=== PATIENT | female | born 1960 | race African-American/Black ===

== ENCOUNTER 2017-08-31 11:44 | Inpatient (IN) | payer MEDICAID ==
[~2017-08-31] VITALS: Ht 157.5 cm; Wt 63.5 kg
[2017-08-31 11:48] VITALS: BP 113/80
--- NOTE | 2017-08-31 12:06 | NUR ---
PT AMBULATED TO BED 12
--- NOTE | 2017-08-31 12:50 | NUR ---
Pt presents to ED with lower abdominal pain x1 day. Pt states vaginal bleed since this am at 6am soaking x12 pads. Pt stats normal urination pattern and does not have lower back pain. Hx of miscarriage x1 month ago. A&Ox4, VSS. ER MD aware. Continue to monitor.
--- NOTE | 2017-08-31 13:32 | NUR ---
XRAY AT BEDSIDE
[2017-08-31 13:57] LABS: BASOPHILS # (AUTO) 0.1 K/uL (0.00-0.22); BASOPHILS % (AUTO) 3.5 % (0.0-2.0); EOSINOPHILS % (AUTO) 0.8 % (0.0-4.0); HEMATOCRIT 43.6 % (36-48); HEMOGLOBIN 14.3 g/dL (12.0-16.0); LYMPHOCYTES # (AUTO) 0.7 K/uL (2.5-16.5); LYMPHOCYTES % (AUTO) 19.5 % (20.5-51.1); MEAN CORPUSCULAR HEMOGLOBIN 29 pg (27-31); MEAN CORPUSCULAR HGB CONC 33 g/dL (33-37); MEAN CORPUSCULAR VOLUME 90 fL (80-94); MONOCYTES # (AUTO) 0.4 K/uL (0.8-1.0); MONOCYTES % (AUTO) 11.3 % (1.7-9.3); NEUTROPHILS # (AUTO) 2.2 K/uL (1.8-7.7); NEUTROPHILS % (AUTO) 64.9 % (42.2-75.2); PLATELET COUNT (AUTO) 132 K/uL (140-450); RED BLOOD CELL COUNT(AUTO) 4.86 MIL/uL (4.20-5.40); RED CELL DISTRIBUTION WIDTH 13.2 % (11.6-13.7); WHITE BLOOD COUNT (AUTO) 3.4 K/uL (4.8-10.8)
[2017-08-31 14:10] LABS: ANION GAP 8.1 (8-16); CARBON DIOXIDE 29.9 mmol/L (21-32); CREATININE 0.8 mg/dL (0.6-1.3)
[2017-08-31 14:17] LABS: TOTAL BILIRUBIN 0.7 mg/dL (0.0-1.0)
[2017-08-31 14:24] LABS: D-DIMER > 5000 ng/ml (0-400)
[2017-08-31 14:26] LABS: PROTHROMBIN TIME 11.1 secs (10.8-13.4)
[2017-08-31] MEDS ORDERED: FAMOTIDINE 20 MG/2 ML VIAL IVP ONE (14:40)
[2017-08-31] MEDS ORDERED: DEXAMETHASONE 10 MG/ML VIAL IVP ONE (14:40)
[2017-08-31] MEDS ORDERED: ONDANSETRON 4 MG/2 ML VIAL IVP ONE (14:40)
--- NOTE | 2017-08-31 15:02 | NUR ---
RETURNED FROM RADIOLOGY VIA WHEELCHAIR
--- NOTE | 2017-08-31 15:23 | NUR ---
IMMEDIATELY AFTER PUSHING DILUTED DECADRON IV SLOWLY---PT FELT A BURNING SENSATION OVER PERINEAL AREA LASTING <1 MIN MD NOTIFIED---NO INTERVENTION REQUIRED AT THIS TIME
[2017-08-31] MEDS: NACL 0.9% 1,000 ML IV SCH (15:54)
[2017-08-31] MEDS ORDERED: HYDROcodone/APAP 7.5/325 MG 1 TAB PO PRN (15:55)
[2017-08-31] MEDS ORDERED: ACETAMINOPHEN 325 MG TAB PO PRN (15:55)
[2017-08-31] MEDS ORDERED: ONDANSETRON 4 MG/2 ML VIAL IVP PRN (15:55)
[2017-08-31 16:25] LABS: APPEARANCE,URINE SL CLOUDY (CLEAR); BILIRUBIN,URINE 1+ (NEGATIVE); BLOOD, URINE NEGATIVE (NEGATIVE); COLOR,URINE OTHER (YELLOW); LEUKOCYTE ESTERASE ,URINE NEGATIVE (NEGATIVE); NITRITE, URINE POSITIVE (NEGATIVE); UGLUCOSE NEGATIVE (NEGATIVE)
[2017-08-31 16:32] LABS: BARBITURATE, URINE NEG. ng/ml (NEG <=200); BENZODIAZEPINE, URINE NEG. ng/mL (NEG <=200); CANNABINOID, URINE NEG. ng/mL (NEG <=50); COCAINE, URINE POS. ng/mL (NEG <=300); OPIATE, URINE NEG. ng/mL (NEG <=2000); PHENCYCLIDINE SCREEN,URINE NEG. ng/mL (NEG <=25)
[2017-08-31 16:38] LABS: RBC,URINE 0-5 (RARE) /HPF (0-5); URINE AMORPHOUS URATE 3+ /HPF (None Seen); WBC,URINE 6-15 (FEW) /HPF (0-5)
[2017-08-31 16:43] LABS: CHOL/HDL RATIO 4.3 (1-4.5); FREE T4 (FREE THYROXINE) 1.44 ng/dL (0.76-1.46); PHOSPHORUS 3.3 mg/dL (2.5-4.9); THYROID STIMULATING HORMONE 1.01 uIU/mL (0.34-3.74)
--- NOTE | 2017-08-31 16:50 | NUR ---
Report given and care transfered to [facility] room 112B, transported via gurney with vss, by Kash REYNOLDS and Fabrizio EMT.
[2017-08-31 17:00] VITALS: BP 119/73
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
--- NOTE | 2017-08-31 19:10 | NUR ---
PATIENT IN BED WATCHING TV. PT STABLE NO C/O PAIN OR DISCOMFORT. NO ACUTE DISTRESS. WILL CONT TO MONITOR.
--- NOTE | 2017-08-31 19:20 | NUR ---
REPORT GIVEN AT BEDSIDE TO FOUNDRY WORKER GENERAL NURSE FOR CONTINUITY OF CARE. PATIENT STABLE.
--- NOTE | 2017-08-31 19:21 | NUR ---
PATIENT REPORT RECEIVED FROM MORNING NURSE AT BEDSIDE. PATIENT IS AWAKE, ALERT AND ORIENTED. NO SIGNS AND SYMPTOMS OF DISTRESS NOTED. NO COMPLAINTS OF PAIN AT THIS TIME. PATIENT'S FAMILY IS AT BEDSIDE. IV SITE NOTED ON LEFT FOREARM, IVF FLUID INFUSING WELL. PLAN OF CARE DISCUSSED WITH PATIENT AND FAMILY. PATIENT VERBALIZED UNDERSTANDING. BED IN LOWEST POSITION, SIDE RAILS UP AND CALL LIGHT WITHIN REACH. WILL CONTINUE TO MONITOR.
[2017-08-31 20:00] VITALS: BP 117/70
[2017-08-31] MEDS: DOCUSATE SODIUM 100 MG GELCAP PO SCH (21:00)
--- NOTE | 2017-08-31 22:00 | NUR ---
MEDICATION EDUCATION GIVEN. PATIENT VERBALIZED UNDERSTANDING. DUE MEDS GIVEN ORDERED. PATIENT TOLERATED WELL, WILL CONTINUE TO MONITOR.
[2017-08-31] MEDS: NITROFURANTOIN 100 MG CAP PO SCH (22:15)
[2017-09-01] VITALS: BP 114/69
--- NOTE | 2017-09-01 01:29 | NUR ---
CHECKED ON PATIENT. PATIENT IS ASLEEP. NO SIGNS AND SYMPTOMS OF DISTRESS NOTED. BREATHING EVEN AND UNLABORED. WILL CONTINUE TO MONITOR.
--- NOTE | 2017-09-01 03:45 | NUR ---
CHECKED ON PATIENT. PATIENT IS ASLEEP, NO SIGNS AND SYMPTOMS OF DISTRESS NOTED. BREATHING EVEN AND UNLABORED. WILL CONTINUE TO MONITOR.
[2017-09-01 04:00] VITALS: BP 121/88
--- NOTE | 2017-09-01 06:00 | NUR ---
PATIENT REQUESTED TO TAKE A SHOWER. NOTIFIED RESIDENT, RESIDENT PUT IN ORDER FOR PATIENT TO BE ABLE TO TAKE A SHOWER
--- NOTE | 2017-09-01 06:51 | NUR ---
PATIENT HAS BEEN SCREENED AND CATEGORIZED LOW NUTRITION RISK. PATIENT WILL BE SEEN WITHIN 7 DAYS OF ADMISSION. 09/07/17 WENCESLAO BOLDEN MS, RDN
--- NOTE | 2017-09-01 07:04 | NUR ---
PATIENT REPORT GIVEN TO MORNING NURSE FOR CONTINUITY OF CARE. PATIENT IS IN STABLE CONDITION
--- NOTE | 2017-09-01 07:05 | NUR ---
RECEIVED REPORT AT BEDSIDE FROM KENO WRITER / RUNNER NURSE FOR CONTINUITY OF CARE. PATIENT RESTING IN BED WITH EYES CLOSED. NO ACUTE DISTRESS NOTED. CONT WITH IV TO LAC 20G. WITH NS RUNNING AT 20ML/HR . WILL CONT TO MONITOR PT.
[2017-09-01 07:27] LABS: HEMATOCRIT 39.2 % (36-48); MEAN CORPUSCULAR HEMOGLOBIN 30 pg (27-31); MEAN CORPUSCULAR HGB CONC 33 g/dL (33-37); MEAN CORPUSCULAR VOLUME 89 fL (80-94); PLATELET COUNT (AUTO) 117 K/uL (140-450); RED BLOOD CELL COUNT(AUTO) 4.38 MIL/uL (4.20-5.40); RED CELL DISTRIBUTION WIDTH 12.8 % (11.6-13.7); WHITE BLOOD COUNT (AUTO) 5.5 K/uL (4.8-10.8)
[2017-09-01 07:38] LABS: ANION GAP 9.8 (8-16); CARBON DIOXIDE 26.3 mmol/L (21-32); CREATININE 0.6 mg/dL (0.6-1.3); POTASSIUM 4.1 mmol/L (3.5-5.1)
[2017-09-01 07:42] LABS: MAGNESIUM 1.8 mg/dL (1.8-2.4); PHOSPHORUS 2.9 mg/dL (2.5-4.9)
[2017-09-01 08:00] VITALS: BP 130/82
--- NOTE | 2017-09-01 08:00 | NUR ---
INITIAL ASSESSMENT PERFORMED. PATIENT A/O X4 IN GOOD SPIRITS.NO ACUTE DISTRESS NOTED. PATIENT WITH LAC 20G WITH IVF NS @ 20ML/HR. PATENT AND INTACT. LUNG SOUNDS CLEAR X ALL LOBES. BOWEL SOUNDS ACTIVE X 4 QUADS. PATIENT DENIES PAIN.SKIN CONT WITH PETECHIAL RASH TO BLE PATIENT VERBALIZED LEGS FEEL BETTER. DENIES PAIN. PATIENT VERBALIZED SHE SHOWERED AND WAS AMBULATING EARLY THIS MORNING. DISCUSSED PLAN OF CARE AT BEDSIDE. PATIENT VERBALIZED UNDERSTANDING AND AGREEMENT. CALL LIGHT WITHIN REACH. WILL CONT TO MONITOR.
[2017-09-01 08:36] LABS: BASOPHILS % (MANUAL) 0 % (0-2); EOSINOPHILS % (MANUAL) 0 % (0-4); LYMPHOCYTES % (MANUAL) 10 % (20-46); MONOCYTES % (MANUAL) 5 % (5-12)
[2017-09-01] MEDS: DOCUSATE SODIUM 100 MG GELCAP PO SCH ×2 (08:57→21:38)
[2017-09-01] MEDS: NITROFURANTOIN 100 MG CAP PO SCH ×2 (08:57→17:10)
--- NOTE | 2017-09-01 10:00 | NUR ---
PATIENT ALERT AND ABLE TO MAKE NEEDS KNOWN. PATIENT WITH AT BEDSIDE. NO ACUTE DISTRESS NOTED. DENIES PAIN. PT IN GOOD SPIRITS. CALL LIGHT WITHIN REACH. WILL CONT TO MONITOR.
[2017-09-01 12:00] VITALS: BP 108/58
--- NOTE | 2017-09-01 12:00 | NUR ---
PATIENT IN ROOM EATING WATCHING TV. DENIES PAIN. NO ACUTE DISTRESS. CALL LIGHT WITHIN REACH. WILL CONT TO MONITOR PT.
--- NOTE | 2017-09-01 14:12 | NUR ---
PATIENT IN BED WITH EYES CLOSED RESTING. NO ACUTE DISTRESS NOTED. RESP EVEN AND UNLABORED. CALL LIGHT WITHIN REACH. WILL CONT TO MONITOR PT.
[2017-09-01] MEDS: NACL 0.9% 1,000 ML IV SCH (15:54)
[2017-09-01 16:00] VITALS: BP 140/72
--- NOTE | 2017-09-01 16:30 | NUR ---
PATIENT IN BED WATCHING TV. STABLE . NO ACUTE DISTRESS. NO C/O PAIN. WILL CONT TO MONITOR.
--- NOTE | 2017-09-01 17:38 | NUR ---
PATIENT REMOVED FROM TELE MONITOR TRANSFERRED CARE TO MED SURG. PT STABLE. NO ACUTE DISTRESS NOTED.PATIENT WITH FAMILY AT BEDSIDE. CALL LIGHT WITHIN REACH. WILL CONT TO MONITOR.
--- NOTE | 2017-09-01 19:19 | NUR ---
REPORT GIVEN TO DISTRIBUTION SPECIALIST NURSE AT BEDSIDE FOR CONT OF CARE. PATIENT STABLE.
--- NOTE | 2017-09-01 19:20 | NUR ---
RECD. RESTING IN BED, AWAKE, A/OX4. RESPIRATION EVEN AND UNLABORED. CONVERSING WITH FAMILY AT THE BEDSIDE. IV OF NS AT 20 ML/HR INFUSING LEFT AC G20. CONVERSING WITH FAMILY AT THE BEDSIDE. NOTED PETECHIAL RASH AT THE LEFT LOWER EXTREMITY. DENIES PAIN 0/10.
--- NOTE | 2017-09-01 20:25 | NUR ---
PATIENT IS COMPLAINING THAT MD TALK TO HER AND WILL ORDER MEDICATION FOR HER PLATELET BUT WAS NOT GIVEN. EXPLAINED DECADRON WAS ORDERED TODAY BUT WILL START TOMORROW AM. SPOKE WITH RESIDENT ON DUTY, DR. GUZMÁN STATED WE'RE STILL WAITING FOR SOME LAB TEST AND WILL SPEAK WITH PATIENT LATER AND ANSWER ALL QUESTIONS. PLAN OF CARE DISCUSSED WITH PATIENT AND FAMILY. VERBALIZED UNDERSTANDING. FAMILY MEMBER TAKE PICTURE OF EMAR WHILE DISCUSSING MEDICATIONS TO BE GIVEN FOR TONIGHT. WENT OUT OF THE ROOM AT ONCE, NO REASON GIVEN WHY HE TOOK PICTURES.
--- NOTE | 2017-09-01 20:26 | NUR ---
Patient's Plan of Care was discussed and reviewed with SUPERVISOR BINDERY: JESSIE WILCOX
--- NOTE | 2017-09-01 22:45 | NUR ---
DR. GUZMÁN SPOKE WITH PATIENT AND ANSWERS ALL PATIENTS QUESTIONS. WILL ORDER MEDICATION FOR SLEEP.
[2017-09-01] MEDS ORDERED: ZOLPIDEM 5 MG TAB PO ONE (22:50)
--- NOTE | 2017-09-01 23:08 | NUR ---
COMPLAINT OF INABILITY TO SLEEP, MEDICATED WITH AMBIEN 5 MG. PO ORDERED.
[2017-09-02] VITALS: BP 123/74
--- NOTE | 2017-09-02 00:08 | NUR ---
SLEEPING COMFORTABLY IN BED.
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
--- NOTE | 2017-09-02 05:00 | NUR ---
VITAL SIGN TAKEN - 98.4, HR - BP - 145/92, RR -20, 02 SAT - 98%. ENCOURAGED TO CALM DOWN.
--- NOTE | 2017-09-02 05:30 | NUR ---
STATED FEELING BETTER WHEN CHECKED IN HER ROOM.
[2017-09-02 06:54] LABS: BASOPHILS # (AUTO) 0.2 K/uL (0.00-0.22); BASOPHILS % (AUTO) 3.8 % (0.0-2.0); EOSINOPHILS % (AUTO) 0.8 % (0.0-4.0); HEMATOCRIT 38.8 % (36-48); HEMOGLOBIN 13.1 g/dL (12.0-16.0); LYMPHOCYTES # (AUTO) 1.1 K/uL (2.5-16.5); LYMPHOCYTES % (AUTO) 26.9 % (20.5-51.1); MEAN CORPUSCULAR HEMOGLOBIN 31 pg (27-31); MEAN CORPUSCULAR HGB CONC 34 g/dL (33-37); MEAN CORPUSCULAR VOLUME 90 fL (80-94); MONOCYTES # (AUTO) 0.3 K/uL (0.8-1.0); MONOCYTES % (AUTO) 7.6 % (1.7-9.3); NEUTROPHILS # (AUTO) 2.6 K/uL (1.8-7.7); NEUTROPHILS % (AUTO) 60.9 % (42.2-75.2); PLATELET COUNT (AUTO) 125 K/uL (140-450); RED BLOOD CELL COUNT(AUTO) 4.31 MIL/uL (4.20-5.40); RED CELL DISTRIBUTION WIDTH 12.9 % (11.6-13.7); WHITE BLOOD COUNT (AUTO) 4.2 K/uL (4.8-10.8)
--- NOTE | 2017-09-02 07:02 | NUR ---
CONDITION REMAIN STABLE. NO HEMATURIA NOTED IN THE URINE. WILL ENDORSE TO AM NURSE FOR CONTINUITY OF CARE.
[2017-09-02 07:06] LABS: ANION GAP 11.6 (8-16); CREATININE 0.7 mg/dL (0.6-1.3); POTASSIUM 3.6 mmol/L (3.5-5.1)
[2017-09-02 07:08] LABS: MAGNESIUM 1.7 mg/dL (1.8-2.4); PHOSPHORUS 3.8 mg/dL (2.5-4.9)
--- NOTE | 2017-09-02 07:20 | NUR ---
RECEIVED PATIENT REPORT AT BEDSIDE. PATIENT AWAKE, ALERT AND ORIENTED. NO S/S OF DISTRESS. PATIENT DENIES PAIN. PETECHIAL RASHES NOTED TO BLE. IV LINE NOTED TO THE LEFT AC SL. BED LOWERED WITH CALL LIGHT WITHIN REACH. WILL CONTINUE TO MONITOR
--- NOTE | 2017-09-02 07:20 | NUR ---
ENDORSED TO RODOLFO TAY FOR CONTINUITY OF CARE.
[2017-09-02 07:58] VITALS: BP 142/79
[2017-09-02] MEDS ORDERED: DEC4 PO (08:57)
[2017-09-02] MEDS ORDERED: NITR100C15 PO (08:57)
[2017-09-02] MEDS ORDERED: GUAI100L66 PO (08:57)
[2017-09-02] MEDS ORDERED: LACT1.4C PO (08:57)
[2017-09-02] MEDS: DOCUSATE SODIUM 100 MG GELCAP PO SCH (09:00)
[2017-09-02] MEDS ORDERED: DEXAMETHASONE 4 MG TAB PO SCH (09:00)
[2017-09-02] MEDS: NITROFURANTOIN 100 MG CAP PO SCH (09:02)
--- NOTE | 2017-09-02 09:15 | NUR ---
PATIENT AMBULATING AROUND THE UNIT
--- NOTE | 2017-09-02 10:38 | NUR ---
PATIENT DISCHARGED TO HOME. DISCHARGE INSTRUCTIONS AND DISCHARGE PRESCRIPTIONS GIVEN. PATIENT VERBALIZED UNDERSTANDING. IV LINE DISCONTINUED. PATIENT LEFT WITH ALL HER BELONGINGS AND DISCHARGE PAPERS. PATIENT LEFT IN STABLE CONDITION
== END 2017-09-02 10:40 | disposition home or self-care (01) | DRG 661 ==
LOC: MED 11:44 → MTU 15:59
PROVIDERS: ADMIT Student in an Organized Health Care Education/Training Program; ATTEND Student in an Organized Health Care Education/Training Program
DX: D69.3 Immune thrombocytopenic purpura (principal); N17.0 Acute kidney failure with tubular necrosis; N39.0 Urinary tract infection, site not specified; F14.10 Cocaine abuse, uncomplicated; R80.9 Proteinuria, unspecified; E78.5 Hyperlipidemia, unspecified; M06.9 Rheumatoid arthritis, unspecified; F17.210 Nicotine dependence, cigarettes, uncomplicated; Z91.14 Patient's other noncompliance with medication regimen; Z90.710 Acquired absence of both cervix and uterus; Z98.891 History of uterine scar from previous surgery
CPT/HCPCS: 36415; 71045; 80048; 80053; 80305; 81001; 82150; 82550; 82948; 83036; 83690; 83735; 83880; 84100; 84439; 84443; 84484; 85025; 85379; 85610; 85730; 86886; 86900; 86901; 87081; 87086; 93005; 93970; 96374; 96375; 99285; J1100; J2405; J3490; J7030; Q0092